=== PATIENT | female | born 1990 | race Caucasian/White ===

== ENCOUNTER 2017-09-04 21:19 | Emergency (ER) | payer BC ==
[~2017-09-04] VITALS: Ht 167.6 cm; Wt 121.0 kg
[2017-09-04 23:33] LABS: BASOPHILS # (AUTO) 0.1 X10'3 (0-0.2); BASOPHILS % (AUTO) 0.4 % (0-1); EOSINOPHILS # (AUTO) 0.2 X10'3 (0-0.9); EOSINOPHILS % (AUTO) 1.4 % (0-6); HEMATOCRIT 38.2 % (35.0-45.0); HEMOGLOBIN 12.9 g/dl (12.0-16.0); LYMPHOCYTES # (AUTO) 2.6 X10'3 (1.1-4.8); LYMPHOCYTES % (AUTO) 15.2 % (21-51); MEAN CORPUSCULAR HEMOGLOBIN 27.6 PG (27.0-31.0); MEAN CORPUSCULAR HGB CONC 33.8 % (33.0-36.5); MEAN CORPUSCULAR VOLUME 81.7 FL (78-98); MEAN PLATELET VOLUME 9.6 FL (7.4-10.4); MONOCYTES # (AUTO) 1.3 X10'3 (0-0.9); MONOCYTES % (AUTO) 7.5 % (2-12); NEUTROPHILS # (AUTO) 12.8 X10'3 (1.8-7.7); NEUTROPHILS % (AUTO) 75.5 % (42-75); PLATELET COUNT 402 X10'3 (140-440); RED BLOOD COUNT 4.67 X10'6 (4.20-5.60); RED CELL DISTRIBUTION WIDTH 16.1 % (11.5-14.5)
[2017-09-04 23:43] LABS: URINE HCG NEGATIVE (NEG)
[2017-09-04 23:55] LABS: URINE AMPHETAMINE SCREEN NEGATIVE (Neg); URINE BARBITUATE SCREEN NEGATIVE (Neg); URINE BENZODIAZEPINES SCREEN NEGATIVE (Neg); URINE CANNABINOID SCREEN NEGATIVE (Neg); URINE COCAINE SCREEN NEGATIVE (Neg); URINE METHADONE SCREEN NEGATIVE (Neg); URINE OPIATE SCREEN NEGATIVE (Neg); URINE PHENCYCLIDINE SCREEN NEGATIVE (Neg)
[2017-09-05 00:09] LABS: ALANINE AMINOTRANSFERASE 34 U/L (12-78); ALBUMIN 4.1 G/DL (3.4-5.0); ALKALINE PHOSPHATASE 88 IU/L (46-116); ANION GAP 14 (8-16); ASPARTATE AMINO TRANSFERASE 18 U/L (10-37); BILIRUBIN,TOTAL 0.4 MG/DL (0.1-1.0); BLOOD UREA NITROGEN 7 MG/DL (7-18); BUN/CREATININE RATIO 11.5 (6.6-38.0); CALCIUM 9.5 MG/DL (8.5-10.1); CHLORIDE 104 MMOL/L (99-107); CREATININE 0.61 MG/DL (0.40-0.90); ETHANOL < 0.010 GM/DL (0.0-0.010); GLUCOSE 120 MG/DL (70-104); SODIUM 143 MMOL/L (135-145); TOTAL CARBON DIOXIDE 25.5 MMOL/L (24-32); TOTAL PROTEIN 8.3 G/DL (6.4-8.2); eGFR > 90 ML/MIN
[2017-09-05 00:12] LABS: POTASSIUM 2.9 MMOL/L (3.5-5.1)
[2017-09-05 00:39] LABS: TOTAL CELLS COUNTED 100
[2017-09-05 00:40] LABS: ANISOCYTOSIS 1+; PLATELET ESTIMATE NORMAL
[2017-09-05] MEDS ORDERED: potassium Cl 20 mEq SR tablet PO STA (01:33)
[2017-09-05] MEDS ORDERED: ziprasidone IM 20mg inj **IM only IM ONE ×2 (03:55→06:40)
[2017-09-05] MEDS ORDERED: LORazepam 1 MG tablet PO ONE ×2 (04:15→06:40)
[2017-09-05 06:52] LABS: CLARITY,URINE CLEAR (Clear); COLOR,URINE YELLOW (Yellow); GLUCOSE, URINE NEGATIVE (Neg); KETONES,URINE >=80 mg/dl (Neg); LEUKOCYTE ESTERASE ,URINE NEGATIVE (Neg); NITRITES, URINE NEGATIVE (Neg); OCCULT BLOOD,URINE TRACE-INTACT (Neg); PH,URINE 6.5 (4.8-8.0); PROTEIN,URINE NEGATIVE (Neg); UROBILINOGEN,URINE 0.2 E.U/dL (0.2-1.0)
[2017-09-05 06:53] LABS: UA COLLECTION TYPE CLN CATCH MIDSTREAM
[2017-09-05 07:02] LABS: WBC,URINE 0-4 /HPF (0-4)
[2017-09-05 07:03] LABS: BACTERIA,URINE FEW /HPF (Neg); MUCUS STRANDS FEW /LPF (Neg); SQUAMOUS EPITHELIAL CELL,UR MODERATE /LPF (FEW)
[2017-09-05 13:28] LABS: BASOPHILS % (AUTO) 0.4 % (0-1); EOSINOPHILS % (AUTO) 0 % (0-6); HEMATOCRIT 38.9 % (35.0-45.0); HEMOGLOBIN 13.2 g/dl (12.0-16.0); LYMPHOCYTES # (AUTO) 1.6 X10'3 (1.1-4.8); LYMPHOCYTES % (AUTO) 14.7 % (21-51); MEAN CORPUSCULAR HEMOGLOBIN 27.6 PG (27.0-31.0); MEAN CORPUSCULAR VOLUME 81.1 FL (78-98); MEAN PLATELET VOLUME 9.1 FL (7.4-10.4); MONOCYTES # (AUTO) 0.8 X10'3 (0-0.9); MONOCYTES % (AUTO) 6.9 % (2-12); NEUTROPHILS # (AUTO) 8.6 X10'3 (1.8-7.7); PLATELET COUNT 381 X10'3 (140-440); RED BLOOD COUNT 4.79 X10'6 (4.20-5.60); RED CELL DISTRIBUTION WIDTH 16.1 % (11.5-14.5)
[2017-09-05 14:01] VITALS: BP 158/98
== END 2017-09-05 16:04 | disposition home or self-care (01) ==
LOC: ER 21:21
DX: F23 Brief psychotic disorder (principal)
CPT/HCPCS: 36415; 80053; 80305; 80320; 81001; 81003; 81025; 84132; 84145; 84443; 85025; 99284

== ENCOUNTER 2017-09-05 15:02 | Inpatient (IN) | payer BC ==
[~2017-09-05] VITALS: Ht 167.6 cm; Wt 121.0 kg
[2017-09-05 17:12] VITALS: BP 154/99
[2017-09-05 20:00] VITALS: BP 148/55
[2017-09-05] MEDS ORDERED: LORazepam 1 MG tablet PO PRN (21:55)
[2017-09-05] MEDS ORDERED: OLANZapine 5mg rapidly disint. tablet PO ONE (21:55)
[2017-09-05] MEDS ORDERED: olanzapine 10mg tablet PO PRN (22:30)
[2017-09-06] MEDS ORDERED: OLANZapine 5mg rapidly disint. tablet PO PRN (05:50)
[2017-09-06] MEDS: LORazepam 1 MG tablet PO SCH ×4 (07:45→20:46)
[2017-09-06 08:00] VITALS: BP 147/98
[2017-09-06] MEDS: OLANZapine 5mg rapidly disint. tablet PO SCH ×3 (08:00→20:45)
[2017-09-06 08:06] LABS: BASOPHILS # (AUTO) 0.1 X10'3 (0-0.2); BASOPHILS % (AUTO) 0.4 % (0-1); EOSINOPHILS # (AUTO) 0.1 X10'3 (0-0.9); EOSINOPHILS % (AUTO) 0.8 % (0-6); HEMATOCRIT 38.9 % (35.0-45.0); HEMOGLOBIN 13.2 g/dl (12.0-16.0); LYMPHOCYTES # (AUTO) 1.3 X10'3 (1.1-4.8); LYMPHOCYTES % (AUTO) 10.6 % (21-51); MEAN CORPUSCULAR HEMOGLOBIN 27.3 PG (27.0-31.0); MEAN CORPUSCULAR HGB CONC 33.9 % (33.0-36.5); MEAN CORPUSCULAR VOLUME 80.4 FL (78-98); MEAN PLATELET VOLUME 8.7 FL (7.4-10.4); MONOCYTES % (AUTO) 7.6 % (2-12); NEUTROPHILS # (AUTO) 10.1 X10'3 (1.8-7.7); NEUTROPHILS % (AUTO) 80.6 % (42-75); PLATELET COUNT 386 X10'3 (140-440); RED BLOOD COUNT 4.83 X10'6 (4.20-5.60); RED CELL DISTRIBUTION WIDTH 15.9 % (11.5-14.5); WHITE BLOOD COUNT 12.6 X10'3 (4.5-11.0)
[2017-09-06 08:24] LABS: ANION GAP 12 (8-16); BLOOD UREA NITROGEN 8 MG/DL (7-18); BUN/CREATININE RATIO 9.9 (6.6-38.0); CALCIUM 9.3 MG/DL (8.5-10.1); CHLORIDE 106 MMOL/L (99-107); CREATININE 0.81 MG/DL (0.40-0.90); GLUCOSE 136 MG/DL (70-104); POTASSIUM 3.1 MMOL/L (3.5-5.1); SODIUM 143 MMOL/L (135-145); TOTAL CARBON DIOXIDE 25.4 MMOL/L (24-32); eGFR 87 ML/MIN
[2017-09-06 08:25] LABS: ALANINE AMINOTRANSFERASE 30 U/L (12-78); ALBUMIN 4.1 G/DL (3.4-5.0); ALKALINE PHOSPHATASE 77 IU/L (46-116); ASPARTATE AMINO TRANSFERASE 18 U/L (10-37); BILIRUBIN,TOTAL 0.6 MG/DL (0.1-1.0); TOTAL PROTEIN 8.2 G/DL (6.4-8.2)
[2017-09-06] MEDS: docusate sod 100mg capsule PO SCH ×2 (09:17→20:46)
[2017-09-06 19:21] VITALS: BP 156/107
[2017-09-07 08:00] VITALS: BP 151/107
[2017-09-07] MEDS: docusate sod 100mg capsule PO SCH ×2 (08:04→20:42)
[2017-09-07] MEDS: LORazepam 1 MG tablet PO SCH ×2 (08:04→13:00)
[2017-09-07] MEDS: OLANZapine 5mg rapidly disint. tablet PO SCH ×2 (08:04→13:40)
[2017-09-07 11:32] LABS: HEMOGLOBIN A1C 5.8 % (4.5-6.2)
[2017-09-07 11:35] LABS: CHOL/HDL RATIO 3.5 (0.00-4.99); CHOLESTEROL 149 MG/DL (0-200); HDL CHOLESTEROL 42 MG/DL (35-60); LDL CHOLESTEROL 87 MG/DL (50-100); TRIGLYCERIDES 102 MG/DL (20-135)
[2017-09-07 19:23] LABS: D-DIMER 0.32 MG/L FEU (0-0.50)
[2017-09-07 20:00] VITALS: BP 158/98
[2017-09-07 20:18] LABS: ALBUMIN 3.8 G/DL (3.4-5.0); ANION GAP 11 (8-16); BLOOD UREA NITROGEN 8 MG/DL (7-18); BUN/CREATININE RATIO 10.7 (6.6-38.0); CALCIUM 8.8 MG/DL (8.5-10.1); CHLORIDE 104 MMOL/L (99-107); CREATININE 0.75 MG/DL (0.40-0.90); GLUCOSE 138 MG/DL (70-104); POTASSIUM 3.3 MMOL/L (3.5-5.1); SODIUM 140 MMOL/L (135-145); TOTAL CARBON DIOXIDE 24.8 MMOL/L (24-32); eGFR > 90 ML/MIN
[2017-09-07] MEDS: labetalol 100mg tablet PO SCH (20:43)
[2017-09-07] MEDS ORDERED: LORazepam 1 MG tablet PO PRN (21:00)
[2017-09-07] MEDS ORDERED: LORazepam 1 MG tablet PO SCH (21:00)
[2017-09-07] MEDS ORDERED: OLANZapine 5mg rapidly disint. tablet PO SCH (21:00)
[2017-09-08] MEDS: olanzapine 10mg tablet PO SCH ×2 (08:45→12:54)
[2017-09-08] MEDS ORDERED: diphenhydrAMINE 25mg capsule PO ONE (09:40)
[2017-09-08] MEDS: divalproex sod 250mg ER (24-hour) tablet PO SCH ×2 (09:50→20:13)
[2017-09-08] MEDS: labetalol 100mg tablet PO SCH ×2 (09:50→19:52)
[2017-09-08] MEDS: docusate sod 100mg capsule PO SCH ×2 (09:50→19:54)
[2017-09-08] MEDS: pantoprazole 40mg Tablet.DR PO SCH (09:50)
[2017-09-08] MEDS ORDERED: potassium Cl 20 mEq SR tablet PO STA (10:03)
[2017-09-08 10:36] VITALS: BP 157/103
[2017-09-08 12:21] VITALS: BP 145/87
[2017-09-08 12:21] LABS: BASOPHILS % (AUTO) 0.2 % (0-1); EOSINOPHILS # (AUTO) 0.2 X10'3 (0-0.9); EOSINOPHILS % (AUTO) 1.2 % (0-6); HEMATOCRIT 36.6 % (35.0-45.0); HEMOGLOBIN 12.5 g/dl (12.0-16.0); LYMPHOCYTES # (AUTO) 1.7 X10'3 (1.1-4.8); MEAN CORPUSCULAR HEMOGLOBIN 27.2 PG (27.0-31.0); MEAN CORPUSCULAR HGB CONC 34.1 % (33.0-36.5); MEAN CORPUSCULAR VOLUME 79.6 FL (78-98); MEAN PLATELET VOLUME 8.6 FL (7.4-10.4); MONOCYTES # (AUTO) 0.9 X10'3 (0-0.9); MONOCYTES % (AUTO) 6.7 % (2-12); NEUTROPHILS # (AUTO) 11.1 X10'3 (1.8-7.7); NEUTROPHILS % (AUTO) 79.9 % (42-75); PLATELET COUNT 389 X10'3 (140-440); RED CELL DISTRIBUTION WIDTH 15.8 % (11.5-14.5); WHITE BLOOD COUNT 13.9 X10'3 (4.5-11.0)
[2017-09-08 12:35] LABS: ALANINE AMINOTRANSFERASE 29 U/L (12-78); ALBUMIN 3.8 G/DL (3.4-5.0); ALBUMIN/GLOBULIN RATIO 0.9 (1.1-1.5); ALKALINE PHOSPHATASE 75 IU/L (46-116); ANION GAP 13 (8-16); ASPARTATE AMINO TRANSFERASE 19 U/L (10-37); BILIRUBIN,TOTAL 0.6 MG/DL (0.1-1.0); BLOOD UREA NITROGEN 7 MG/DL (7-18); CALCIUM 9.2 MG/DL (8.5-10.1); CHLORIDE 105 MMOL/L (99-107); GLUCOSE 110 MG/DL (70-104); POTASSIUM 3.7 MMOL/L (3.5-5.1); SODIUM 142 MMOL/L (135-145); TOTAL CARBON DIOXIDE 24.3 MMOL/L (24-32); TOTAL PROTEIN 7.9 G/DL (6.4-8.2); eGFR > 90 ML/MIN
[2017-09-08] MEDS: LORazepam 1 MG tablet PO PRN (17:37)
[2017-09-08] MEDS ORDERED: lurasidone 60mg tablet PO SCH (18:00)
[2017-09-08 20:07] VITALS: BP 155/102
[2017-09-09] MEDS: LORazepam 1 MG tablet PO PRN ×2 (05:22→22:46)
[2017-09-09] MEDS ORDERED: polyethylene glycol 3350 17gm powd pack PO PRN (05:30)
[2017-09-09] MEDS ORDERED: magnesium hydroxide 30ml (MOM) UD suspension PO PRN (06:45)
[2017-09-09] MEDS ORDERED: mag hydrox/Alum hydrox/simeth 30ml oral suspension PO PRN (06:45)
[2017-09-09] MEDS ORDERED: acetaminophen 325mg tablet PO PRN ×2 (06:45)
[2017-09-09] MEDS: docusate sod 100mg capsule PO SCH ×2 (08:00→19:22)
[2017-09-09 08:03] VITALS: BP 169/91
[2017-09-09] MEDS: labetalol 100mg tablet PO SCH ×2 (08:17→19:20)
[2017-09-09] MEDS: divalproex sod 250mg ER (24-hour) tablet PO SCH ×2 (08:52→19:20)
[2017-09-09] MEDS: OLANZapine 2.5MG tablet PO SCH ×2 (08:53→12:51)
[2017-09-09] MEDS: pantoprazole 40mg Tablet.DR PO SCH (08:53)
[2017-09-09] MEDS: lurasidone 20mg tablet PO SCH (19:26)
[2017-09-09 20:00] VITALS: BP 146/104
[2017-09-09] MEDS ORDERED: normal saline 1000ml 1,000 ML IVB ONE (20:26)
[2017-09-09 22:22] VITALS: BP 160/94
[2017-09-10] MEDS ORDERED: OLANZapine 5mg rapidly disint. tablet PO ONE (01:25)
[2017-09-10] MEDS ORDERED: temazepam 15mg capsule PO ONE (01:25)
[2017-09-10 05:03] LABS: BASOPHILS % (AUTO) 0.3 % (0-1); EOSINOPHILS # (AUTO) 0.2 X10'3 (0-0.9); EOSINOPHILS % (AUTO) 2.3 % (0-6); HEMATOCRIT 35.8 % (35.0-45.0); HEMOGLOBIN 12.1 g/dl (12.0-16.0); LYMPHOCYTES # (AUTO) 2.7 X10'3 (1.1-4.8); LYMPHOCYTES % (AUTO) 29.8 % (21-51); MEAN CORPUSCULAR HEMOGLOBIN 27.4 PG (27.0-31.0); MEAN CORPUSCULAR HGB CONC 33.7 % (33.0-36.5); MEAN CORPUSCULAR VOLUME 81.3 FL (78-98); MEAN PLATELET VOLUME 8.8 FL (7.4-10.4); MONOCYTES % (AUTO) 10.8 % (2-12); NEUTROPHILS # (AUTO) 5.2 X10'3 (1.8-7.7); NEUTROPHILS % (AUTO) 56.8 % (42-75); PLATELET COUNT 351 X10'3 (140-440); RED CELL DISTRIBUTION WIDTH 15.8 % (11.5-14.5); WHITE BLOOD COUNT 9.1 X10'3 (4.5-11.0)
[2017-09-10 06:28] LABS: ALANINE AMINOTRANSFERASE 28 U/L (12-78); ALBUMIN 3.2 G/DL (3.4-5.0); ALBUMIN/GLOBULIN RATIO 0.9 (1.1-1.5); ALKALINE PHOSPHATASE 64 IU/L (46-116); ANION GAP 11 (8-16); ASPARTATE AMINO TRANSFERASE 13 U/L (10-37); BILIRUBIN,TOTAL 0.4 MG/DL (0.1-1.0); BLOOD UREA NITROGEN 6 MG/DL (7-18); BUN/CREATININE RATIO 10.7 (6.6-38.0); CALCIUM 8.9 MG/DL (8.5-10.1); CHLORIDE 105 MMOL/L (99-107); CREATININE 0.56 MG/DL (0.40-0.90); GLUCOSE 102 MG/DL (70-104); POTASSIUM 3.9 MMOL/L (3.5-5.1); SODIUM 142 MMOL/L (135-145); TOTAL CARBON DIOXIDE 26.1 MMOL/L (24-32); TOTAL PROTEIN 6.9 G/DL (6.4-8.2); eGFR > 90 ML/MIN
[2017-09-10] MEDS: OLANZapine 2.5MG tablet PO SCH (07:27)
[2017-09-10] MEDS: pantoprazole 40mg Tablet.DR PO SCH (07:27)
[2017-09-10 08:00] VITALS: BP 140/91
[2017-09-10] MEDS: docusate sod 100mg capsule PO SCH ×2 (08:00→20:40)
[2017-09-10] MEDS: divalproex sod 250mg ER (24-hour) tablet PO SCH ×2 (09:00→20:40)
[2017-09-10] MEDS: labetalol 100mg tablet PO SCH ×2 (09:00→20:40)
[2017-09-10 15:40] VITALS: BP 139/98
[2017-09-10] MEDS: lurasidone 20mg tablet PO SCH (17:44)
[2017-09-10 20:00] VITALS: BP 146/75
[2017-09-10] MEDS: temazepam 15mg capsule PO PRN (22:02)
[2017-09-11 08:00] VITALS: BP 131/82
[2017-09-11] MEDS: docusate sod 100mg capsule PO SCH ×2 (08:00→20:13)
[2017-09-11] MEDS: pantoprazole 40mg Tablet.DR PO SCH (08:05)
[2017-09-11] MEDS: divalproex sod 250mg ER (24-hour) tablet PO SCH ×2 (08:54→20:12)
[2017-09-11] MEDS: labetalol 100mg tablet PO SCH ×2 (08:54→20:12)
[2017-09-11] MEDS: OLANZapine 2.5MG tablet PO PRN ×2 (10:42→21:56)
[2017-09-11] MEDS: LORazepam 1 MG tablet PO PRN ×2 (11:30→23:01)
[2017-09-11] MEDS: lurasidone 20mg tablet PO SCH (18:01)
[2017-09-11 19:55] VITALS: BP 130/82
[2017-09-11] MEDS: temazepam 15mg capsule PO PRN (20:12)
[2017-09-12] MEDS: pantoprazole 40mg Tablet.DR PO SCH (07:39)
[2017-09-12] MEDS: docusate sod 100mg capsule PO SCH ×2 (07:41→20:38)
[2017-09-12] MEDS: labetalol 100mg tablet PO SCH ×2 (07:42→20:37)
[2017-09-12] MEDS: divalproex sod 250mg ER (24-hour) tablet PO SCH ×2 (07:42→20:36)
[2017-09-12] MEDS: LORazepam 1 MG tablet PO PRN ×3 (07:43→20:37)
[2017-09-12 08:00] VITALS: BP 117/70
[2017-09-12] MEDS: OLANZapine 2.5MG tablet PO PRN ×2 (15:10→21:17)
[2017-09-12] MEDS: lurasidone 20mg tablet PO SCH (17:42)
[2017-09-12 19:55] VITALS: BP 120/70
[2017-09-13] MEDS: OLANZapine 2.5MG tablet PO PRN (05:18)
[2017-09-13 08:00] VITALS: BP 137/94
[2017-09-13] MEDS: labetalol 100mg tablet PO SCH ×2 (08:11→21:56)
[2017-09-13] MEDS: pantoprazole 40mg Tablet.DR PO SCH (08:11)
[2017-09-13] MEDS: docusate sod 100mg capsule PO SCH ×2 (08:11→20:00)
[2017-09-13] MEDS: divalproex sod 250mg ER (24-hour) tablet PO SCH ×2 (08:11→21:56)
[2017-09-13 13:21] LABS: ALDOSTERONE 17.9 ng/dL (0.0-30.0)
[2017-09-13 15:13] LABS: RENIN, PLASMA 3.291 ng/mL/hr (0.167-5.380)
[2017-09-13] MEDS: lurasidone 20mg tablet PO SCH (17:51)
[2017-09-13 19:14] LABS: ALANINE AMINOTRANSFERASE 19 U/L (12-78); ALBUMIN 3.4 G/DL (3.4-5.0); ALBUMIN/GLOBULIN RATIO 0.9 (1.1-1.5); ALKALINE PHOSPHATASE 71 IU/L (46-116); ANION GAP 9 (8-16); ASPARTATE AMINO TRANSFERASE 11 U/L (10-37); BILIRUBIN,TOTAL 0.2 MG/DL (0.1-1.0); BLOOD UREA NITROGEN 5 MG/DL (7-18); BUN/CREATININE RATIO 7.9 (6.6-38.0); CHLORIDE 103 MMOL/L (99-107); CREATININE 0.63 MG/DL (0.40-0.90); GLUCOSE 112 MG/DL (70-104); POTASSIUM 3.7 MMOL/L (3.5-5.1); SODIUM 141 MMOL/L (135-145); TOTAL CARBON DIOXIDE 28.6 MMOL/L (24-32); TOTAL PROTEIN 7.4 G/DL (6.4-8.2); eGFR > 90 ML/MIN
[2017-09-13 19:26] LABS: VALPROATE 79 UG/ML (50-100)
[2017-09-13 19:55] VITALS: BP 137/94
[2017-09-13] MEDS: temazepam 15mg capsule PO PRN (21:56)
[2017-09-14] MEDS: salt irrigation nasal spray 45 ML SPRAY NS PRN ×3 (07:08→22:21)
[2017-09-14] MEDS: pantoprazole 40mg Tablet.DR PO SCH (07:08)
[2017-09-14] MEDS: docusate sod 100mg capsule PO SCH ×2 (07:10→20:18)
[2017-09-14 08:00] VITALS: BP 142/101
[2017-09-14] MEDS: labetalol 100mg tablet PO SCH ×2 (08:08→20:18)
[2017-09-14] MEDS: divalproex sod 250mg ER (24-hour) tablet PO SCH ×2 (08:08→20:18)
[2017-09-14 14:00] VITALS: BP 131/81
[2017-09-14] MEDS: lurasidone 20mg tablet PO SCH (18:00)
[2017-09-14 19:27] VITALS: BP 146/91
[2017-09-14 21:00] VITALS: BP 130/78
[2017-09-14] MEDS: temazepam 15mg capsule PO PRN (23:23)
[2017-09-15] MEDS: salt irrigation nasal spray 45 ML SPRAY NS PRN (05:34)
[2017-09-15] MEDS: pantoprazole 40mg Tablet.DR PO SCH (07:22)
[2017-09-15] MEDS: docusate sod 100mg capsule PO SCH (07:23)
[2017-09-15 07:59] VITALS: BP 154/98
[2017-09-15] MEDS: labetalol 100mg tablet PO SCH (08:07)
[2017-09-15] MEDS: divalproex sod 250mg ER (24-hour) tablet PO SCH (08:08)
[2017-09-15] MEDS ORDERED: LURA60TA2 PO (10:52)
[2017-09-15] MEDS ORDERED: PANT40TA4 PO (10:52)
[2017-09-15] MEDS ORDERED: LABE100T PO (10:52)
[2017-09-15] MEDS ORDERED: LURA40TA3 PO (10:52)
[2017-09-15] MEDS ORDERED: COL100C PO (10:52)
[2017-09-15] MEDS ORDERED: DIVA500T9 PO (10:52)
[2017-09-15] MEDS ORDERED: TEMA15CA PO (10:52)
== END 2017-09-15 12:55 | disposition home or self-care (01) | DRG 885 ==
LOC: ADULT MH 15:02
PROVIDERS: ADMIT Psychiatry & Neurology Psychiatry; ATTEND Psychiatry & Neurology Psychiatry
DX: F39 Unspecified mood [affective] disorder (principal); E87.3 Alkalosis; F22 Delusional disorders; Z68.41 Body mass index [BMI] 40.0-44.9, adult; E66.9 Obesity, unspecified; E87.6 Hypokalemia; E86.0 Dehydration; F32.9 Major depressive disorder, single episode, unspecified; F29 Unspecified psychosis not due to a substance or known physiological condition; F41.9 Anxiety disorder, unspecified; H66.90 Otitis media, unspecified, unspecified ear; R07.89 Other chest pain; I10 Essential (primary) hypertension; K21.9 Gastro-esophageal reflux disease without esophagitis; Z53.20 Procedure and treatment not carried out because of patient's decision for unspecified reasons; Z81.8 Family history of other mental and behavioral disorders; Z82.49 Family history of ischemic heart disease and other diseases of the circulatory system; Z79.899 Other long term (current) drug therapy; Z83.3 Family history of diabetes mellitus
CPT/HCPCS: 36415; 70450; 80048; 80053; 80061; 80164; 82088; 83036; 84244; 84484; 85025; 85379; 87070; 93005; 99285; J3490; J7030; Q0163

== ENCOUNTER 2019-05-30 04:02 | Emergency (ER) | payer BC, OTHER ==
[~2019-05-30] VITALS: Ht 170.2 cm; Wt 136.4 kg
[~2019-05-30 04:02] MED LIST: COL100C PO; DIVA500T9 PO; LABE100T5 PO; LURA40TA3 PO; LURA60TA2 PO; PANT40TA4 PO; TEMA15CA PO
[2019-05-30 05:04] LABS: BASOPHILS # (AUTO) 0.1 X10'3 (0-0.2); BASOPHILS % (AUTO) 0.7 % (0-1); EOSINOPHILS # (AUTO) 0.1 X10'3 (0-0.9); EOSINOPHILS % (AUTO) 0.8 % (0-6); HEMOGLOBIN 12.5 g/dl (12.0-16.0); LYMPHOCYTES # (AUTO) 2.8 X10'3 (1.1-4.8); LYMPHOCYTES % (AUTO) 28.1 % (21-51); MEAN CORPUSCULAR HEMOGLOBIN 26.7 PG (27.0-31.0); MEAN CORPUSCULAR HGB CONC 32.8 g/dL (33.0-36.5); MEAN CORPUSCULAR VOLUME 81.3 FL (78-98); MEAN PLATELET VOLUME 8.5 FL (7.4-10.4); MONOCYTES # (AUTO) 0.9 X10'3 (0-0.9); MONOCYTES % (AUTO) 9.3 % (2-12); NEUTROPHILS % (AUTO) 61.1 % (42-75); PLATELET COUNT 416 X10'3 (140-440); RED BLOOD COUNT 4.67 X10'6 (4.20-5.60); RED CELL DISTRIBUTION WIDTH 15.6 % (11.5-14.5); WHITE BLOOD COUNT 9.8 X10'3 (4.5-11.0)
[2019-05-30 05:11] LABS: HCG SERUM QL NEGATIVE
[2019-05-30 05:14] LABS: URINE AMPHETAMINE SCREEN NEGATIVE (Neg); URINE BARBITUATE SCREEN NEGATIVE (Neg); URINE BENZODIAZEPINES SCREEN NEGATIVE (Neg); URINE CANNABINOID SCREEN NEGATIVE (Neg); URINE COCAINE SCREEN NEGATIVE (Neg); URINE METHADONE SCREEN NEGATIVE (Neg); URINE OPIATE SCREEN NEGATIVE (Neg); URINE PHENCYCLIDINE SCREEN NEGATIVE (Neg)
[2019-05-30 05:14] LABS: ALANINE AMINOTRANSFERASE 24 U/L (12-78); ALBUMIN 3.9 G/DL (3.4-5.0); ALBUMIN/GLOBULIN RATIO 0.8 (1.1-1.5); ALKALINE PHOSPHATASE 94 IU/L (46-116); ANION GAP 11 (8-16); ASPARTATE AMINO TRANSFERASE 15 U/L (10-37); BILIRUBIN,TOTAL 0.4 MG/DL (0.1-1.0); BLOOD UREA NITROGEN 13 MG/DL (7-18); BUN/CREATININE RATIO 16.7 (6.6-38.0); CALCIUM 9.3 MG/DL (8.5-10.1); CHLORIDE 106 MMOL/L (99-107); CREATININE 0.78 MG/DL (0.40-0.90); GLUCOSE 129 MG/DL (70-104); POTASSIUM 3.1 MMOL/L (3.5-5.1); SODIUM 142 MMOL/L (135-145); TOTAL CARBON DIOXIDE 25.4 MMOL/L (24-32); TOTAL PROTEIN 8.9 G/DL (6.4-8.2); eGFR 89 ML/MIN
[2019-05-30 05:24] LABS: ETHANOL < 0.010 GM/DL (0.0-0.010)
--- NOTE | 2019-05-30 05:25 | NUR ---
Tele-psych is currently speaking to the patient in the room. Spoke to tele-psych MD who declined receiving fax of previous visit summary.
[2019-05-30 05:50] VITALS: BP 155/89
[2019-05-30] MEDS ORDERED: LAMO25TA41 PO (05:54)
[2019-05-30] MEDS ORDERED: potassium Cl 20 mEq SR tablet PO STA (06:48)
--- NOTE | 2019-05-30 07:28 | NUR ---
PACKET FAXED TO [facility]
--- NOTE | 2019-05-30 08:46 | NUR ---
DR Hair PLACED PT ON 1798 AFTER RECOMENDATIONS FROM TELE CH
--- NOTE | 2019-05-30 09:44 | NUR ---
Chrissy Stallworth [phone]. Aunt who is an RN. Given permission to share medical information
--- NOTE | 2019-05-30 09:50 | NUR ---
PT AMBULATED TO OVERFLOW WITH A STEADY GAIT. PT'S AUNT DOLORES TOOK ALL OF PT BELONGINGS WITH HER EXCEPT PHONE AND PROTOTYPE MODEL MAKER. PHONE AND PROTOTYPE MODEL MAKER AT NURSES STATION. PT IS WEARINH GLASSES FOR VISION. PT CHANGED OUT OF HER CLOTHES AMD IS WEARING GREEN SCRUBS. PT IS EXHIBITING SYMPTOMS: RAPID PRESURED SPEECH, FAST WALKING, BIZARRE BEHAVIOR, FIXATING ON TODAYS SCHEDULE AND BELONGINGS. PT DENIES SMOKING.
--- NOTE | 2019-05-30 09:55 | NUR ---
pt was searched using the metal detector wand. Neg. for any metal objects
--- NOTE | 2019-05-30 10:05 | NUR ---
PT REQUESTED SOMETHING TO KEEP HER BUSY. PT WAS GIVEN CRAYONS AND COLORING PAGES.
--- NOTE | 2019-05-30 11:39 | NUR ---
Cleve from [facility] is at bedside. No distress observed.
--- NOTE | 2019-05-30 12:01 | NUR ---
CALLED AND SPOKE WITH Ben. SHE IS ON HER WAY TO PICK HER UP.
[2019-05-30] MEDS ORDERED: traZODone 50mg tablet PO SCH (20:00)
== END 2019-05-30 12:30 ==
LOC: ER 04:03
DX: F30.9 Manic episode, unspecified (principal); E87.6 Hypokalemia; Z88.8 Allergy status to other drugs, medicaments and biological substances; Z79.899 Other long term (current) drug therapy
CPT/HCPCS: 36415; 80053; 80305; 80320; 84443; 84703; 85025; 99284